=== PATIENT | male | born 1985 | race African-American/Black ===

== ENCOUNTER 2017-07-03 06:26 | Emergency (ER) | payer OTHER ==
[2017-07-03 08:31] VITALS: BP 151/84
== END 2017-07-03 08:31 | disposition home or self-care (01) ==
LOC: ED 06:26
DX: J45.901 Unspecified asthma with (acute) exacerbation (principal)
CPT/HCPCS: J0171; J7512; J7613; J7644

== ENCOUNTER 2017-08-10 04:11 | Emergency (ER) | payer SELFPAY ==
[~2017-08-10] VITALS: Ht 190.5 cm; Wt 79.4 kg
[2017-08-10 04:18] VITALS: Ht 190.5 cm; Wt 79.4 kg
[2017-08-10 06:16] VITALS: BP 146/65
== END 2017-08-10 06:16 | disposition home or self-care (01) ==
LOC: ED 04:11
DX: J45.901 Unspecified asthma with (acute) exacerbation (principal)
CPT/HCPCS: J2930; J7620

== ENCOUNTER 2017-08-11 21:36 | Emergency (ER) | payer SELFPAY ==
[~2017-08-11] VITALS: Ht 190.5 cm; Wt 78.5 kg
[2017-08-11 21:39] VITALS: Ht 190.5 cm; Wt 78.5 kg
[2017-08-12 01:54] VITALS: BP 97/57
== END 2017-08-12 01:55 | disposition left against medical advice (07) ==
LOC: ED 21:36
DX: Z53.21 Procedure and treatment not carried out due to patient leaving prior to being seen by health care provider (principal)

== ENCOUNTER 2017-10-05 06:12 | Emergency (ER) | payer SELFPAY ==
[~2017-10-05] VITALS: Ht 182.9 cm; Wt 81.6 kg
[2017-10-05 09:25] VITALS: BP 138/70
== END 2017-10-05 09:25 | disposition home or self-care (01) ==
LOC: ED 06:12
DX: J45.901 Unspecified asthma with (acute) exacerbation (principal)
CPT/HCPCS: J2930; J7613; J7644